=== PATIENT | female | born 1965 | race American Indian/Alaskan Native ===

== ENCOUNTER 2016-11-04 14:40 | Emergency (ER) | payer MEDICARE ==
[2016-11-04 17:16] LABS: Alanine Aminotransferase 16 units/L (7-56); Albumin 3.9 g/dL (3.9-5); Alkaline Phosphatase 90 units/L (35-129); Anion Gap 17 mmol/L; BUN/Creatinine Ratio 17.14; Bilirubin,Total 0.4 mg/dL (0.1-1.2); Blood Urea Nitrogen 12 mg/dL (7-17); Calcium 8.7 mg/dL (8.4-10.2); Carbon Dioxide 25 mmol/L (22-30); Chloride 101.8 mmol/L (98-107); Glucose 97 mg/dL (65-100); Lipase 59 units/L (13-60); Potassium 3.9 mmol/L (3.6-5.0); Sodium 140 mmol/L (137-145); Total Protein 7.9 g/dL (6.3-8.2)
[2016-11-04 18:01] LABS: Basophils % (Auto) 0.7 % (0.0-1.8); Eosinophils % (Auto) 2.9 % (0.0-4.3); Hemoglobin 12.6 gm/dl (10.1-14.3); Mean Corpuscular HGB Conc 32 % (30-34); Mean Corpuscular Hemoglobin 29 pg (28-32); Mean Corpuscular Volume 90 fl (79-97); Platelet Count 357 K/mm3 (140-440); Red Blood Count 4.33 M/mm3 (3.65-5.03); Red Cell Distribution Width 14.5 % (13.2-15.2); White Blood Count 11.1 K/mm3 (4.5-11.0)
[2016-11-04 18:55] LABS: Bilirubin,Urine NEG (Negative); Blood,Urine LG (Negative); Ketones,Urine NEG (Negative); Leukocyte Esterase,Urine NEG (Negative); Mucus,Urine FEW /HPF; Nitrite,Urine NEG (Negative); Protein,Urine <15 mg/dL mg/dL (Negative); Urobilinogen,Urine < 2.0 mg/dL (<2.0)
[2016-11-04] MEDS ORDERED: TYLENOL ONE (21:00)
[2016-11-04] MEDS ORDERED: TYLENOL PO ONE (21:02)
[2016-11-04] MEDS ORDERED: TYLENOL #3 PO ONE (23:07)
[2016-11-04] MEDS ORDERED: CLEOCIN PO ONE (23:07)
--- NOTE | 2016-11-04 23:13 | Emergency Department Report ---
HPI - General Chief Complaint: Eye Problems Time Seen by Provider: 11/04/16 22:44 - HPI HPI: The patient is a 51-year-old male who presents for evaluation of left eyelid pain. The patient reports constant and progressive left upper eyelid pain for the past one week, moderate to severe, throbbing in quality, and associated with intermittent clear drainage from the eye. The patient denies fever, trauma to the eye, blurry vision, decreased visual acuity, redness of the eye, purulent discharge, pain with extraocular movements, facial swelling. ED Past Medical Hx - Past Medical History Hx Hypertension: Yes - Surgical History Past Surgical History?: No - Social History Smoking Status: Current Every Day Smoker Substance Use Type: None - Medications Home Medications: Home Medications Medication Instructions Recorded Confirmed Last Taken Type Clindamycin [Clindamycin CAP] 450 mg PO TID #60 capsule 11/04/16 Unknown Rx Erythromycin [Erythromycin Ophth 10 applic OP TID #1 tube 11/04/16 Unknown Rx Oint] HYDROcodone/APAP 7.5-325 [[place] 1 each PO Q8HR PRN #12 tablet 11/04/16 Unknown Rx 7.5-325 mg TAB] ED Review of Systems ROS: Stated complaint: LT EYE REDNESS/LT FACIAL PAIN/POSS Other details as noted in HPI Constitutional: denies: fever HEENT: Reports left eyelid pain denies: throat or neck pain Respiratory: denies: cough, shortness of breath Cardiovascular: denies: chest pain Endocrine: denies unexplained weight loss or gain Gastrointestinal: denies: abdominal pain, nausea Genitourinary: denies: dysuria Musculoskeletal: denies: leg swelling Skin: denies: rash Neurological: denies: headache Hematological/Lymphatic: denies: easy bleeding or easy bruising Psych: denies sadness or hopelessness Physical Exam - Physical Exam Vital Signs: Vital Signs 11/04/16 16:20 Temperature 98.7 F Pulse Rate 62 Respiratory 18 Rate Blood Pressure 152/86 O2 Sat by Pulse 100 Oximetry Physical Exam: General: well-nourished, well-developed, no acute distress Head: Normocephalic, atraumatic, erythema and swelling present to the left upper eyelid Eyes: No proptosis, normal sclera, no conjunctival injection, no purulent drainage or discharge, no pain with extraocular movements, EOMI, PERRL ENT: Mucous membranes are pink and moist Neck: trachea midline, neck supple, No neck stiffness, no cervical adenopathy Respiratory: Breath sounds equal bilaterally, no wheezing, rales, or rhonchi Cardio: S1 and S2 present, no murmurs, rubs, gallops, capillary refill is brisk Abdomen: Normoactive bowel sounds, soft abdomen, no tenderness Musc: No pitting edema Skin: No rash Neuro: no facial drooping, normal speech Psych: Normal affect ED Course Vital Signs 11/04/16 16:20 Temperature 98.7 F Pulse Rate 62 Respiratory 18 Rate Blood Pressure 152/86 O2 Sat by Pulse 100 Oximetry ED Medical Decision Making - Lab Data Result diagrams: 11/04/16 16:43 11/04/16 16:43 - Medical Decision Making The patient was seen and examined by myself. The patient is placed on a tetryl wringer operator and continuous pulse ox. On initial evaluation, the patient was found to be in no distress. Evaluation orders were placed. Findings of examination are consistent with preseptal cellulitis, and there are no exam findings concerning for orbital cellulitis at this time. The patient is given a tablet of clindamycin for treatment of her cellulitis, and a tablet of Tylenol 3 for treatment of her pain. The patient was reevaluated and reported that their symptoms were improved. The patient is stable for discharge with outpatient follow-up. The patient is given follow-up and return instructions. The patient expressed understanding and agreed with the plan. She is given a prescription for clindamycin. The patient is discharged in stable condition. Critical care attestation.: If time is entered above; I have spent that time in minutes in the direct care of this critically ill patient, excluding procedure time. ED Disposition Clinical Impression: Preseptal cellulitis of left upper eyelid Disposition: DISCHARGED TO HOME OR SELFCARE Is pt being admited?: No Does the pt Need Aspirin: No Condition: Stable Instructions: Cellulitis (ED) Prescriptions: Clindamycin [Clindamycin CAP] 450 mg PO TID #60 capsule Erythromycin [Erythromycin Ophth Oint] 10 applic OP TID #1 tube HYDROcodone/APAP 7.5-325 [[place] 7.5-325 mg TAB] 1 each PO Q8HR PRN #12 tablet PRN Reason: Pain Referrals: HANNAH GRIMES MD [Primary Care Provider] - 3-5 Days Time of Disposition: 23:09
[2016-11-05 00:20] VITALS: BP 138/67
== END 2016-11-05 00:15 | disposition home or self-care (01) ==
LOC: ED 14:40
DX: H00.034 Abscess of left upper eyelid (principal); I10 Essential (primary) hypertension; F17.200 Nicotine dependence, unspecified, uncomplicated
CPT/HCPCS: 36415; 80053; 81001; 81025; 83690; 85025; 99284

== ENCOUNTER 2017-02-25 23:12 | Emergency (ER) | payer MEDICARE ==
[2017-02-25 23:52] VITALS: BP 135/76
[2017-02-26 00:46] LABS: Bilirubin,Urine NEG (Negative); Blood,Urine NEG (Negative); Ketones,Urine NEG (Negative); Leukocyte Esterase,Urine NEG (Negative); Mucus,Urine FEW /HPF; Nitrite,Urine NEG (Negative); Protein,Urine <15 mg/dL mg/dL (Negative); Urobilinogen,Urine < 2.0 mg/dL (<2.0)
== END 2017-02-26 01:00 | disposition left against medical advice (07) ==
LOC: ED 23:12
DX: M54.89 Other dorsalgia (principal); Z53.21 Procedure and treatment not carried out due to patient leaving prior to being seen by health care provider
CPT/HCPCS: 81001; 81025